=== PATIENT | female | born 1965 | race Caucasian/White ===

== ENCOUNTER 2017-08-01 14:19 | Emergency (ER) | payer OTHER ==
--- NOTE | 2017-08-01 14:22 | PDOC ---
Rapid Medical Evaluation Chief Complaint: Edema Time Seen by Provider: 08/01/17 14:21 Medical Evaluation: Allergies Allergy/AdvReac Type Severity Reaction Status Date / Time No Known Allergies Allergy Verified 04/26/16 15:27 08/01/17 14:24 52 year old female with a history of asthma and hypothyroidism (stopped taking [place] Thyroid approx 1 month ago because of "side effects") presents with non- traumatic right leg pain and swelling since last night. No recent travel, no OCP , no smoking, no surgery/trauma/immobility, no family/personal history of hypercoaguability. No chest pain or SOB. V/s unremarkable. Right calf edema extending up to thigh, tenderness to gentle palpation RRR, S1/S2 Lungs CTAB, no pleuritic pain Plan: 1. U/s RLE r/o DVT 2. Basic labs + TSH 3. To [facility] for further evaluation Discharge Disposition - Referrals Referrals: Nerissa Gutierrez MD [Primary Care Provider] - - Patient Instructions - Post Discharge Activity
[2017-08-01 14:28] VITALS: BP 135/84; PULSE 86; TEMP 97.7; BMI 31.1
[2017-08-01] MEDS ORDERED: KETOROLAC TROMETHAMINE 30 MG/1 ML VIAL IM ONE (15:36)
--- NOTE | 2017-08-01 15:36 | PDOC ---
History of Present Illness - General Chief Complaint: Edema Stated Complaint: SWOLLEN RIGHT LEG Time Seen by Provider: 08/01/17 14:21 History Source: Patient - History of Present Illness Initial Comments: 08/01/17 15:48 52 year old female c/o left knee and ankle pain and swelling x 2 days. patient reports that she has a history of hypothyroidism and has not taken her medication (armour) for 1 month. No recent travel, no OCP, no smoking, no surgery/trauma/immobility, No chest pain or SOB. Lower Ext. Injury Location - Specific Injury Location Hips: right hip: no evidence of injury Past History - Past Medical History Allergies/Adverse Reactions: Allergies Allergy/AdvReac Type Severity Reaction Status Date / Time No Known Allergies Allergy Verified 08/01/17 14:23 Home Medications: Ambulatory Orders NK [No Known Home Medication] 06/29/16 Asthma: Yes COPD: No Thyroid Disease: Yes (hypo) - Suicide/Smoking/Psychosocial Hx Smoking History: Never smoked Have you smoked in the past 12 months: No Hx Alcohol Use: No Drug/Substance Use Hx: No Substance Use Type: None Review of Systems - Review of Systems Able to Perform ROS?: Yes Is the patient limited Nep[place]e proficient: No Constitutional: No: Symptoms Reported, See HPI, Chills, Diaphoresis, Fever, Loss of Appetite, Malaise, Night Sweats, Weakness, Weight Stable, Unintentional Wgt. Loss, Unexplained wgt Loss, Other Musculoskeletal: Yes: Other (right knee and ankle pain and swelling. + pedal pulse) *Physical Exam - Vital Signs Last Vital Signs Temp Pulse Resp BP Pulse Ox 97.7 F 86 19 135/84 98 08/01/17 14:24 08/01/17 14:24 08/01/17 14:24 08/01/17 14:24 08/01/17 14:24 - Physical Exam General Appearance: Yes: Appropriately Dressed Respiratory/Chest: positive: Lungs Clear, Normal Breath Sounds Cardiovascular: positive: Regular Rhythm, Regular Rate Gastrointestinal/Abdominal: positive: Normal Bowel Sounds, Soft Extremity: positive: Normal Capillary Refill, Normal Inspection, Normal Range of Motion, Other (+ pedal pulse) Integumentary: positive: Normal Color, Dry, Warm Neurologic: positive: Fully Oriented, Alert, Normal Mood/Affect ED Treatment Course - LABORATORY CBC & Chemistry Diagram: 08/01/17 15:33 08/01/17 15:33 Progress Note - Progress Note Progress Note: A: right ankle swelling and pain P: cbc cmp us: neg *DC/Admit/Observation/Transfer Diagnosis at time of Disposition: Leg swelling - Discharge Dispostion Disposition: HOME - Referrals Referrals: Nerissa Gutierrez MD [Primary Care Provider] - Call tomorrow - Patient Instructions Printed Discharge Instructions: DI for Peripheral Edema, Unilateral Additional Instructions: please follow up with your doctor as soon as possible. You need further workup for the cause of your swelling. your ultrasound was negative for DVT / clot - Post Discharge Activity Forms/Work/School Notes: Back to Work
[2017-08-01] MEDS ORDERED: KETOROLAC TROMETHAMINE 30 MG/1 ML VIAL ONE (15:45)
[2017-08-01 15:54] LABS: BASO % 0.4 % (0-2.0); EOS % 3.2 % (0-4.5); MCH 27.1 pg (25.7-33.7); MCHC 32.4 g/dl (32.0-36.0); MEAN CELL VOLUME 83.4 fl (80-96); MEAN PLT VOLUME 7.8 fl (7.5-11.1); NEUT % 46.4 % (42.8-82.8); PLATELET COUNT 265 K/MM3 (134-434); RDW 13.6 % (11.6-15.6); WHITE BLOOD COUNT 6.4 K/mm3 (4.0-10.0)
[2017-08-01 16:11] LABS: INR 0.97 (0.82-1.09)
[2017-08-01 16:21] LABS: ALBUMIN 4.1 g/dl (3.4-5.0); ALK PHOS 136 U/L (45-117); ANION GAP 7 (8-16); BILIRUBIN,TOTAL 0.4 mg/dL (0.2-1.0); CALCIUM 9.3 mg/dL (8.5-10.1); CO2 32 mmol/L (21-32); CREATININE 0.8 mg/dL (0.55-1.02); GLUCOSE,RANDOM 95 mg/dL (74-106); SGOT/AST 27 U/L (15-37); SGPT/ALT 40 U/L (12-78); TOT PROT 7.3 g/dl (6.4-8.2)
== END 2017-08-01 16:59 | disposition home or self-care (01) ==
LOC: JERFT 14:19
PROC: 3E0233Z Introduction of Anti-inflammatory into Muscle, Percutaneous Approach (ICD-10-PCS; principal; 2017-08-01)
DX: M79.89 Other specified soft tissue disorders (principal); E03.9 Hypothyroidism, unspecified; J45.909 Unspecified asthma, uncomplicated
CPT/HCPCS: 36415; 80053; 85025; 85610; 93971-TC; 96372; 99282-25

== ENCOUNTER 2021-10-27 12:24 | Inpatient (IN) | payer SELFPAY ==
[2021-10-27 12:31] VITALS: BMI 30.6
[2021-10-27] MEDS ORDERED: ACETAMINOPHEN 1000 MG/100 ML BAG IVPB ONE (13:31)
[2021-10-27] MEDS ORDERED: LABETALOL HCL 5 MG/1 ML (100MG/20 ML VIAL) IVPUSH ONE (13:31)
[2021-10-27] MEDS ORDERED: LABETALOL HCL 5 MG/1 ML (200MG/40ML VIAL) IVPB ONE (13:52)
[2021-10-27] MEDS ORDERED: ACETAMINOPHEN INJECTION 100 ML IVPB ONE (13:52)
[2021-10-27 14:31] LABS: BASO % 0.5 % (0-2.0); HEMATOCRIT 40.6 % (32.4-45.2); HEMOGLOBIN 12.8 GM/dL (10.7-15.3); LYMPH % 36.7 % (8-40); MCH 26.7 pg (25.7-33.7); MCHC 31.6 g/dl (32.0-36.0); MEAN CELL VOLUME 84.4 fl (80-96); MEAN PLT VOLUME 7.8 fl (7.5-11.1); NEUT % 50.8 % (42.8-82.8); PLATELET COUNT 277 10^3/uL (134-434); RBC 4.81 M/mm3 (3.60-5.2); RDW 13.3 % (11.6-15.6); WHITE BLOOD COUNT 5.7 K/mm3 (4.0-10.0)
[2021-10-27 14:49] LABS: INR 1.02 (0.83-1.09); PROTHROMBIN TIME (PATIENT) 11.7 SEC (9.7-13.0)
[2021-10-27 14:51] LABS: ACTIVATED PTT 33.3 SECONDS (25.2-36.5)
[2021-10-27 14:55] LABS: ALBUMIN 4.2 g/dl (3.4-5.0); BLOOD UREA NITROGEN 12.8 mg/dL (7-18); CALCIUM 9.4 mg/dL (8.5-10.1)
[2021-10-27 14:59] LABS: CREATININE 0.8 mg/dL (0.55-1.3)
[2021-10-27 15:00] LABS: BILIRUBIN,TOTAL 0.5 mg/dL (0.2-1)
[2021-10-27] MEDS ORDERED: ACETAMINOPHEN 500 MG TABLET (FP) PO ONE (21:45)
[2021-10-27] MEDS ORDERED: ACETAMINOPHEN 500 MG TABLET (FP) ONE (22:18)
[2021-10-28 07:02] LABS: CHLORIDE 109 mmol/L (98-107); SODIUM 140 mmol/L (136-145)
[2021-10-28 07:05] LABS: ALBUMIN 3.9 g/dl (3.4-5.0); ANION GAP 4 MMOL/L (8-16); CO2 27 mmol/L (21-32); GLUCOSE,RANDOM 113 mg/dL (74-106); HEMATOCRIT 36.6 % (32.4-45.2); HEMOGLOBIN 12.4 GM/dL (10.7-15.3); MCH 28.2 pg (25.7-33.7); MEAN CELL VOLUME 82.9 fl (80-96); RBC 4.42 M/mm3 (3.60-5.2); WHITE BLOOD COUNT 5.8 K/mm3 (4.0-10.0)
[2021-10-28 07:06] LABS: BASO % 0.4 % (0-2.0); EOS % 3.1 % (0-4.5); LYMPH % 39.7 % (8-40); MEAN PLT VOLUME 7.8 fl (7.5-11.1); MONO % 9.1 % (3.8-10.2); NEUT % 47.7 % (42.8-82.8); PLATELET COUNT 197 10^3/uL (134-434); RDW 13.3 % (11.6-15.6)
[2021-10-28 07:08] LABS: CHOLESTEROL 172 mg/dL (50-200); CREATININE 0.8 mg/dL (0.55-1.3); SGOT/AST 19 U/L (15-37); SGPT/ALT 22 U/L (13-61); TRIGLYCERIDES 80 mg/dL (0-150)
[2021-10-28 07:09] LABS: BILIRUBIN,TOTAL 0.4 mg/dL (0.2-1); LDL CHOLESTEROL (ONLY SJRH) 101 mg/dL (5-100); TOT PROT 6.7 g/dl (6.4-8.2)
[2021-10-28 07:10] LABS: ALK PHOS 119 U/L (45-117); HDL CHOLESTEROL 57 mg/dL (40-60)
[2021-10-28] MEDS ORDERED: ASPIRIN COATED 81 MG TABLET.EC ONE (09:20)
[2021-10-28] MEDS ORDERED: ACETAMINOPHEN 325 MG TABLET (FP) PO PRN (13:58)
[2021-10-28] MEDS ORDERED: ATORVASTATIN CA 80 MG TABLET (FP) ONE (21:15)
[2021-10-28] MEDS ORDERED: ATORVASTATIN CA 80 MG TABLET (FP) PO SCH (22:00)
[2021-10-29] MEDS ORDERED: ACETAMINOPHEN 325 MG TABLET (FP) ONE (00:20)
[2021-10-29 07:08] LABS: SARS-CoV-2 NAA Not Detected (Not Detected)
[2021-10-29 08:24] LABS: BASO % 0.3 % (0-2.0); EOS % 3.5 % (0-4.5); HEMATOCRIT 38.6 % (32.4-45.2); HEMOGLOBIN 12.7 GM/dL (10.7-15.3); LYMPH % 32.5 % (8-40); MCH 27.4 pg (25.7-33.7); MCHC 32.9 g/dl (32.0-36.0); MEAN CELL VOLUME 83.2 fl (80-96); MEAN PLT VOLUME 7.5 fl (7.5-11.1); MONO % 10.9 % (3.8-10.2); NEUT % 52.8 % (42.8-82.8); PLATELET COUNT 255 10^3/uL (134-434); RBC 4.63 M/mm3 (3.60-5.2); RDW 13.7 % (11.6-15.6); WHITE BLOOD COUNT 5.7 K/mm3 (4.0-10.0)
[2021-10-29] MEDS: ASPIRIN COATED 81 MG TABLET.EC PO SCH ×2 (08:24→11:41)
[2021-10-29 08:42] LABS: BLOOD UREA NITROGEN 15.6 mg/dL (7-18); CALCIUM 9.2 mg/dL (8.5-10.1)
[2021-10-29 08:44] LABS: ALBUMIN 3.8 g/dl (3.4-5.0); MAGNESIUM 2.4 mg/dL (1.8-2.4)
[2021-10-29 08:47] LABS: CREATININE 0.9 mg/dL (0.55-1.3)
[2021-10-29 08:48] LABS: BILIRUBIN,TOTAL 0.8 mg/dL (0.2-1); TOT PROT 6.5 g/dl (6.4-8.2)
[2021-10-29 09:14] VITALS: BP 114/70; PULSE 70; TEMP 98.2
[2021-10-29] MEDS ORDERED: ENOXAPARIN NA (PORCINE) 40 MG/0.4 ML DISP.SYRIN SQ SCH (10:00)
[2021-10-29] MEDS ORDERED: TOPIRAMATE 25 MG TABLET PO SCH (22:00)
[2021-11-02] MEDS ORDERED: TOPIRAMATE 25 MG TABLET PO SCH (22:00)
== END 2021-10-29 14:31 | disposition home or self-care (01) | DRG 45 ==
LOC: JER 12:24 → OBSVTOIN 16:18 → JERBED 16:18 → J4S 10-29 02:13
PROVIDERS: ADMIT Internal Medicine; ATTEND Nurse Practitioner Acute Care
DX: I63.6 Cerebral infarction due to cerebral venous thrombosis, nonpyogenic (principal); G25.81 Restless legs syndrome; G43.909 Migraine, unspecified, not intractable, without status migrainosus; J45.909 Unspecified asthma, uncomplicated; R07.89 Other chest pain; R20.0 Anesthesia of skin; R29.701 NIHSS score 1
CPT/HCPCS: 36415; 70450-TC; 70551-TC; 71045-TC-FY; 71275-TC; 74174-TC; 80053; 80061; 82550; 83036; 83735; 84439; 84443; 84484; 85025; 85610; 85730; 86140; 86850; 86900; 86901; 93005; 93010; 93306-TC; 93880-TC; 97116-GP; 97161-GP; 99285-25; C9803-CS; Q9967; U0003; U0005

== ENCOUNTER 2022-02-08 12:37 | Emergency (ER) | payer OTHER ==
[2022-02-08 13:21] VITALS: BP 113/55; PULSE 79; TEMP 97.9; BMI 30.2
== END 2022-02-08 15:26 | disposition home or self-care (01) ==
LOC: JERFT 12:37 → JER 12:37 → JERFT 15:26
DX: L02.412 Cutaneous abscess of left axilla (principal)
CPT/HCPCS: 99281-25

== ENCOUNTER 2023-01-12 16:00 | Inpatient (IN) | payer OTHER ==
[2023-01-12] MEDS ORDERED: SODIUM CHLORIDE 1,000 ML IV SCH (16:15)
[2023-01-12 16:57] LABS: BASO % 0.6 % (0-2.0); EOS % 3.1 % (0-4.5); HEMATOCRIT 40.2 % (32.4-45.2); LYMPH % 44.1 % (8-40); MCH 26.9 pg (25.7-33.7); MCHC 32.4 g/dl (32.0-36.0); MEAN CELL VOLUME 83.3 fl (80-96); NEUT % 42.2 % (42.8-82.8); PLATELET COUNT 221 10^3/uL (134-434); RBC 4.83 M/mm3 (3.60-5.2); RDW 13.3 % (11.6-15.6); WHITE BLOOD COUNT 7.7 K/mm3 (4.0-10.0)
[2023-01-12 17:04] LABS: INR 0.97 (0.83-1.09); PROTHROMBIN TIME (PATIENT) 11.2 SEC (9.7-13.0)
[2023-01-12 17:06] LABS: ACTIVATED PTT 24.9 SECONDS (25.2-36.5)
[2023-01-12 17:16] LABS: CHLORIDE 109 mmol/L (98-107); POTASSIUM 4.9 mmol/L (3.5-5.1); SODIUM 141 mmol/L (136-145)
[2023-01-12 17:18] LABS: ALBUMIN 4.1 g/dl (3.4-5.0); ANION GAP 5 MMOL/L (8-16); CALCIUM 9.3 mg/dL (8.5-10.1); CO2 27 mmol/L (21-32)
[2023-01-12 17:20] LABS: BLOOD UREA NITROGEN 14.2 mg/dL (7-18); GLUCOSE,RANDOM 104 mg/dL (74-106)
[2023-01-12 17:22] LABS: CREATININE 0.9 mg/dL (0.55-1.3); SGOT/AST 51 U/L (15-37); SGPT/ALT 39 U/L (13-61)
[2023-01-12 17:23] LABS: CHOLESTEROL 149 mg/dL (50-200); TOT PROT 7.6 g/dl (6.4-8.2)
[2023-01-12 17:24] LABS: BILIRUBIN,TOTAL 0.5 mg/dL (0.2-1); LDL CHOLESTEROL (ONLY SJRH) 75 mg/dL (5-100)
[2023-01-12 17:26] LABS: ALK PHOS 126 U/L (45-117); HDL CHOLESTEROL 66 mg/dL (40-60)
[2023-01-12] MEDS: ATORVASTATIN CA 80 MG TABLET (FP) PO SCH (22:11)
[2023-01-13 02:00] VITALS: BMI 31.8
[2023-01-13 06:44] LABS: BASO % 0.4 % (0-2.0); EOS % 3.1 % (0-4.5); HEMATOCRIT 36.8 % (32.4-45.2); HEMOGLOBIN 12.3 GM/dL (10.7-15.3); LYMPH % 39.5 % (8-40); MCH 27.8 pg (25.7-33.7); MCHC 33.5 g/dl (32.0-36.0); MEAN CELL VOLUME 82.9 fl (80-96); MEAN PLT VOLUME 8.3 fl (7.5-11.1); MONO % 9.4 % (3.8-10.2); NEUT % 47.6 % (42.8-82.8); PLATELET COUNT 188 10^3/uL (134-434); RBC 4.44 M/mm3 (3.60-5.2); WHITE BLOOD COUNT 6.1 K/mm3 (4.0-10.0)
[2023-01-13 06:56] LABS: POTASSIUM 4.1 mmol/L (3.5-5.1)
[2023-01-13 07:03] LABS: CALCIUM 8.8 mg/dL (8.5-10.1)
[2023-01-13 07:04] LABS: ALBUMIN 3.4 g/dl (3.4-5.0); BLOOD UREA NITROGEN 13.1 mg/dL (7-18); MAGNESIUM 2.2 mg/dL (1.8-2.4)
[2023-01-13 07:07] LABS: CREATININE 0.8 mg/dL (0.55-1.3)
[2023-01-13 07:08] LABS: BILIRUBIN,TOTAL 0.6 mg/dL (0.2-1)
[2023-01-13 07:09] LABS: TOT PROT 6.2 g/dl (6.4-8.2)
[2023-01-13] MEDS: ENOXAPARIN NA (PORCINE) 40 MG/0.4 ML DISP.SYRIN SQ SCH (09:30)
[2023-01-13] MEDS: ASPIRIN COATED 81 MG TABLET.EC PO SCH (09:30)
[2023-01-13 14:54] LABS: PH,URINE 6.5 (5.0-8.0); URINE APPEARANCE CLEAR; URINE BILIRUBIN NEGATIVE (NEGATIVE); URINE COLOR YELLOW; URINE GLUCOSE (UA) NEGATIVE (NEGATIVE); URINE KETONE NEGATIVE (NEGATIVE); URINE LEUK ESTERASE NEGATIVE (NEGATIVE); URINE NITRITE NEGATIVE (NEGATIVE); URINE PROTEIN NEGATIVE (NEGATIVE)
[2023-01-13 15:01] LABS: COCAINE, UR NEGATIVE (NEGATIVE); METHADONE, UR NEGATIVE (NEGATIVE); OPIATES, URI NEGATIVE (NEGATIVE); URINE AMPHETAMINES NEGATIVE (NEGATIVE); URINE BARBITURATES NEGATIVE (NEGATIVE)
[2023-01-13 15:03] LABS: PHENCYCLIDINE,URINE NEGATIVE (NEGATIVE); URINE BENZODIAZEPINES NEGATIVE (NEGATIVE)
[2023-01-13 22:11] VITALS: RESP 16
[2023-01-13] MEDS: ATORVASTATIN CA 80 MG TABLET (FP) PO SCH (22:13)
[2023-01-14 09:09] VITALS: BP 124/65; PULSE 88; TEMP 98.4
[2023-01-14] MEDS: ASPIRIN COATED 81 MG TABLET.EC PO SCH (09:24)
[2023-01-14] MEDS: ENOXAPARIN NA (PORCINE) 40 MG/0.4 ML DISP.SYRIN SQ SCH (09:24)
== END 2023-01-14 12:12 | disposition home or self-care (01) | DRG 47 ==
LOC: JER 16:00 → JERBED 17:56 → J4S 21:15
PROVIDERS: ADMIT Internal Medicine; ATTEND Internal Medicine
DX: G45.9 Transient cerebral ischemic attack, unspecified (principal); J45.909 Unspecified asthma, uncomplicated; G43.909 Migraine, unspecified, not intractable, without status migrainosus; R29.702 NIHSS score 2; I69.354 Hemiplegia and hemiparesis following cerebral infarction affecting left non-dominant side; I69.322 Dysarthria following cerebral infarction; G62.9 Polyneuropathy, unspecified; E11.65 Type 2 diabetes mellitus with hyperglycemia
CPT/HCPCS: 0241U-QW; 36415; 70450-TC; 70551-TC; 72170-TC-FY; 73502-TC-LT-FY; 80053; 80061; 80307; 81003; 82550; 82553; 83036; 83735; 84100; 84443; 84484; 85025; 85610; 85730; 86850; 86870; 86900; 86901; 86902; 93005; 93010; 93306-TC; 93880-TC; 99291